=== PATIENT | male | born 1965 | race Asian ===

== ENCOUNTER 2022-09-28 09:59 | Emergency (ER) | payer OTHER ==
[~2022-09-28] VITALS: Ht 170.2 cm; Wt 86.2 kg
[2022-09-28 10:02] VITALS: TEMP 97.8
[2022-09-28 10:44] LABS: PLATELET COUNT 313 K/uL (142-355)
[2022-09-28 10:53] VITALS: BP 181/110
== END 2022-09-28 13:05 | disposition still patient (30) ==
LOC: ED 09:59
PROVIDERS: Family Medicine
DX: I16.9 Hypertensive crisis, unspecified (principal); I47.1 Supraventricular tachycardia; F17.210 Nicotine dependence, cigarettes, uncomplicated
CPT/HCPCS: 36415; 80053; 83605; 84484; 85027; 85379; 87040; 87502; 87635; 87651; 93005; 94664; 96361; 96365; 96375; 96376; 99285; J0360; J0696; J2930; J3490; U0003